=== PATIENT | female | born 1940 | race Caucasian/White ===

== ENCOUNTER 2024-06-21 08:24 | Outpatient (CLI) | payer MEDICARE, OTHER, SELFPAY ==
--- NOTE | 2024-06-21 08:30 | ECG_ITS ---
Test Date: 2024-06-21 08:38:00 Measurements Intervals [place] Rate: 70 P: 56 IL: 178 QRS: 7 QRSD: 73 T: 12 QT: 391 QTc: 424 Interpretive Statements SINUS RHYTHM LOW QRS VOLTAGE IN PRECORDIAL LEADS POSSIBLE RIGHT VENTRICULAR CONDUCTION DELAY BASELINE ARTIFACT- I, II, III, AVR, AVL ,AVF BORDERLINE ECG No previous ECG available for comparison Electronically Signed On 06-21-2024 08:50:21 PATENT ATTORNEY by Mani Fisher D.O.
[2024-06-21 09:04] LABS: Alanine Aminotransferase 18 U/L (6-35); Alkaline Phosphatase 59 U/L (38-126); Amylase 63 U/L (30-110); Aspartate Amino Transferase 26 U/L (14-36); Bilirubin,Total 0.5 mg/dL (0.2-1.3); Lipase 56 U/L (23-300)
== END 2024-06-21 08:25 | disposition home or self-care (01) ==
LOC: ANHSURGERY 08:32
PROVIDERS: PCP Internal Medicine; Visit Provider Surgery
DX: K80.50 Calculus of bile duct without cholangitis or cholecystitis without obstruction (principal); R94.31 Abnormal electrocardiogram [ECG] [EKG]; Z01.818 Encounter for other preprocedural examination
CPT/HCPCS: 36415; 80076; 82150; 83690; 93005

== ENCOUNTER 2024-06-28 00:20 | Day surgery (SDC) | payer MEDICARE, OTHER, SELFPAY ==
[2024-06-11 10:12] VITALS: BMI 29.5
--- NOTE | 2024-06-11 10:37 | PC.NURSE ---
Report to the Outpatient Waiting Room, entrance under the green pavilion located off [facility], at time __1000am on date __06/28/24 . Planned Procedure Time: __1200pm .? Time changes happen often and if your time is changed the preop area will call you the afternoon before. - You and your visitor will be asked to self-screen and do not enter if you have any COVID symptoms. Please call surgeon if you need to reschedule. - A mask is optional within the hospital at this time. Patients may have clear liquids (water, carbonated beverages, clear teas, apple juice) until 3 hours prior to surgery with a maximum of 20 ounces. - No food from midnight until time of surgery and no smoking. This includes no chewing gum, candy or mints. (0900am) Take only the following medications with a SIP of water on the morning of surgery: __None DO NOT STOP ANY OF YOUR OTHER PRESCRIPTION MEDICATIONS PRIOR TO SURGERY EXCEPT THE FOLLOWING Medications to discontinue per physician Hold all vitamins and supplements for 3 days prior per Anesthesia Date to take last dose____06/24/24 Please no make-up, nail monegasque, hairspray, perfume, deodorant, or body powder the day of surgery.? No jewelry (including any body piercings) or valuables the day of surgery, leave them at home.? Please take a shower or bath the night before, or the morning of, surgery with an antibacterial soap.? Wear comfortable, loose fitting clothing.? - Jewelry must be removed prior to entering the operating room.? Rings and piercings that are not removed may be cut off. - The hospital will not accept responsibility for valuables.? - Please leave all valuables, including medications, at home the day of surgery. If you are going home after surgery, a licensed parts driver must drive you home.? - NO public transportation without another adult if you receive anesthesia. - We recommend that an adult stay with you for 24 hours following discharge. - We also recommend that you do not drive, make important decision, drink alcoholic beverages, or take any drugs that were not prescribed by your health care provider for at least 24 hours after your discharge time. Follow any additional instructions given to you from your surgeon. Telephone instructions given to _patient and asked if any additional questions and then verbalized understanding. Patient advised to call surgeon office or pre surgery nurse liaison [phone] if any additional questions.
[2024-06-28] VITALS (10 sets, daily range): BP systolic 122–145; BP diastolic 63–77; PULSE 64–84; RESP 12–19; TEMP 36.7–36.8; O2SAT 93–100
[2024-06-28] MEDS: ACETAMINOPHEN 500 MG TABLET 1000 MG PO (11:55)
[2024-06-28] MEDS: LACTATED RINGERS 1,000 ML 30 ML IV CONT ×2 (12:00→15:48)
[2024-06-28] MEDS: KETOROLAC 15 MG/ML VIAL (*BKC) IV PUSH (12:05)
--- NOTE | 2024-06-28 12:57 | P.PNAN_ITS ---
Anes - Eval Pre Procedure Procedure: Operation Date: 06/28/24 13:30 Proposed Procedures p Laparoscopic Cholecystectomy, Possible Open - Omer Lynn MD Date/Time: 06/28/24 12:57 Pre Op Diagnosis: Biliary Colic Patient Data Age: 83 Gender: F Height: 1.57 m Weight: 76 kg Last Vital Signs Temp 98.2 F 06/28/24 12:46 Pulse 76 06/28/24 12:46 Resp 18 06/28/24 12:46 BP 138/71 06/28/24 12:46 Pulse Ox 97 06/28/24 12:46 O2 Del Method Room Air 06/28/24 12:46 Allergies Allergy/AdvReac Type Severity Reaction Status Date / Time Penicillins Allergy Severe Swelling Verified 06/28/24 12:14 of Lip/Tongue/Throat triamcinolone [From Kenalog] Allergy Intermediate Other Verified 06/28/24 12:14 codeine AdvReac Intermediate Nausea and Verified 06/28/24 12:14 Vomiting promethazine [From Phenergan] AdvReac Intermediate Agitated Verified 06/28/24 12:14 EYE STERIODS Allergy Severe Other Uncoded 06/28/24 12:14 STERIODS Allergy Intermediate Other Uncoded 06/28/24 12:14 Home Medications Medication Instructions Recorded Confirmed Type vit C 50 mg-E 15 unit-zinc cit 4.5 1 tablet PO DAILY 07/27/19 06/28/24 History mg-lutein 2.5 mg-zeaxan chew tablet (Net 263) vitamin B complex 1 tablet PO DAILY 07/27/19 06/28/24 History flnxkmw-nwt-nbv L8-ayefvc-Zd tablet 1 tablet PO DAILY 06/11/24 06/28/24 History glucosamine pelaez dipot-chond pelaez 1 cap PO DAILY 06/11/24 06/28/24 History sod-C-Mn 500 mg-400 mg-66 mg-3 mg cap qczpvpkd-zkro-bpwb 8 mg-folic 400 1 tablet PO DAILY 06/11/24 06/28/24 History mcg-K 50 mcg-lutein 300 mcg tablet ([facility] vitamin E 1,000 unit tablet 1 tablet PO DAILY 06/11/24 06/28/24 History ECG: NSR VR 70 Patient hx anesthesia problems: none Family hx anesthesia problems: none Results Review: All pre-operative results and documents have been reviewed as part of the pre- operative evaluation. [facility] Past Medical History Medical History Biliary colic Cataract Dysfunctional gallbladder Over weight Surgical History Surgical History H/O vitrectomy H/O: hysterectomy Family History Family History Mother Cancer of unknown origin Father Cancer of unknown origin Sibling Cancer of unknown origin Grandparent Cerebrovascular accident Social History Social History Smoking status: Unknown if ever smoked Alcohol intake: never Substance use: never Living arrangements: alone Spiritual care concerns: No Exam Day of Procedure 06/28/24 12:57 Patient weight: overweight Heart: regular rate and rhythm Lungs: clear to auscultation Airway: Mallampati scale class II Neurological: alert and oriented
--- NOTE | 2024-06-28 13:52 | WPDHPUPDATE1 ---
History and Physical Update Update Date/Time: 06/28/24 13:52 History and Physical has been reviewed, including an updated exam of the patient. There are NO changes in the patient's condition. Risks, benefits, and alternatives have been discussed and questions answered. Patient agrees to proceed with procedure.
[2024-06-28] MEDS: LIDO 1%/EPINEPHRINE 1:100,000 20 ML VIAL 60 ML INFILTRATE (14:21)
[2024-06-28] MEDS: ceFAZolin 2 GM/D5W 50 ML 2 GM/50 ML BAG IVPB (14:46)
--- NOTE | 2024-06-28 15:48 | W.PM.PROC2 ---
Procedure Note - Detailed Date of Procedure 06/28/24 Pre-op Diagnosis Biliary Colic Post-op Diagnosis Same Procedure Performed Laparoscopic cholecystectomy Surgeon Omer Lynn MD [employer] Supervisor Chrissy Serra [facility] Anesthesia General Indications Patient is an 83-year-old female who has had a long history of nausea and right upper quadrant pain sometimes associated with eating. Abdominal ultrasound has showed no evidence of gallstones or gallbladder wall thickening. A HIDA scan was done showing ejection fraction gallbladder at 37% however with the injection of CCK recreated on her symptoms of nausea and pain. She appears to have gallbladder dysfunction following biliary colic and chronic nature and presents now for elective laparoscopic cholecystectomy. Findings The gallbladder was dilated and then not appear to be acutely inflamed. No gallstones were palpated within the gallbladder after was removed. Description of Procedure After informed consent was obtained patient brought to the operating room where she was placed supine position and general endotracheal anesthesia was administered. A time-out was then performed correctly identifying the patient as well as procedure to be performed. She was given perioperative IV antibiotics. The abdomen was then prepped and draped usual sterile fashion. I then entered the abdomen left upper quadrant utilizing a 5mm Optiview port. Once inside the abdomen I insufflated to adequate pneumoperitoneum of 15mmHg of CO2. There were adhesions of omentum in the mid abdomen around the area the umbilicus. I then placed a 5mm left lateral abdominal wall trocar port then utilizing energized laparoscopic jerome proceeded to take down these omental adhesions so I could place a port at the umbilicus. Once this was done I then placed a 5mm trocar port at the periumbilical region and then placed a 10mm epigastric trocar port and 2 more right lateral subcostal 5mm trocar ports all under direct visualization the gallbladder was then held with a laparoscopic grasper at the dome and elevated over the right half liver towards the right shoulder. A 2nd grasper used to hold the gallbladder at the infundibulum. I then proceeded to strip down the visceral peritoneum off of the infundibular gallbladder to identify the cystic duct. The cystic duct was dissected out circumferentially. The cystic artery was identified and was dissected out circumferentially as well. Posterior wall the gallbladder was dissected free of the liver into the critical view was obtained. At this point I then placed 2 clips proximally cystic duct and 2 clips distally high on infundibular gallbladder. The cystic duct was divided with Endo Jerome. In a similar fashion cystic artery was then clipped and divided as well. The gallbladder was then resected off the liver utilized electrocautery. No bile was spilled during this dissection. Once the gallbladder was free from the liver is placed into an Endo-Catch bag and brought out through the epigastric port site. The gallbladder was sent to pathology for examination. I then irrigated out the right upper quadrant the abdomen gallbladder fossa with sterile saline solution. Hemostasis was excellent. No evidence of bile leak was seen. I then removed all the trocar ports under direct visualization all port sites appeared hemostatic. The abdomen was allowed to decompress. Irrigated the port sites with sterile saline solution. The epigastric 10mm trocar port fascial defect was closed utilizing 0 Vicryl suture. The skin edges in all the port sites were then approximated utilizing a running subcuticular 4-0 Monocryl suture. The incisions were then cleaned the skin glue sterile dressings were applied. The patient tolerated the procedure well no complications. All sponges, needles, and instrument counts were correct at the end procedure. EBL was _20__cc. The patient was awakened and taken to recovery in stable and satisfactory condition. Implants None Estimated Blood Loss 20 Drains No Packing No Pathology Yes (Gallbladder sent to pathology) Complications No immediate complications Condition Stable Disposition PACU [facility] Billing Surgery - Charge Forward: Surgery Billing
[2024-06-28] MEDS: ONDANSETRON INJ 4 MG/2 ML VIAL IV PUSH (16:11)
[2024-06-28] MEDS: fentaNYL CITRATE INJ (*CRX) 100 MCG/2 ML VIAL 25 MCG IV PUSH ×2 (16:51→16:54)
== END 2024-06-28 18:14 | disposition home or self-care (01) ==
PROVIDERS: PCP Internal Medicine; Visit Provider Surgery
PROC: 0FT44ZZ Resection of Gallbladder, Percutaneous Endoscopic Approach (ICD-10-PCS; CPT 47562; principal; 2024-06-28 13:30)
DX: K82.8 Other specified diseases of gallbladder (principal)
CPT/HCPCS: 47562; 88304; A9270; J0690; J1100; J1885; J2003; J2004; J2405; J2704; J3010; J7120